=== PATIENT | male | born 1995 | race Caucasian/White ===

== ENCOUNTER 2016-07-15 11:20 | Emergency (ER) | payer OTHER ==
[~2016-07-15] VITALS: Ht 185.4 cm; Wt 68.0 kg
[~2016-07-15 11:20] MED LIST: AMOXICILLIN500 MG PO; BACTRIM DS 8001 TAB PO
[2016-07-15 11:39] VITALS: BP 110/75
--- NOTE | 2016-07-15 13:18 | ED EYE COMPLAINT ---
History of Present Illness General Chief Complaint: Eye Problems Stated Complaint: "MY EYE IS ALL MESSED UP" LEFT EYE Source: patient Exam Limitations: no limitations Vital Signs & Intake/Output Vital Signs & Intake/Output Vital Signs Date Time Temp Pulse Resp B/P Pulse O2 O2 Flow FiO2 Ox Delivery Rate 07/15 1139 98.1 75 20 110/75 98 Room Air Allergies Coded Allergies: NO KNOWN ALLERGIES (02/01/15) Reconcile Medications Amoxicillin 500 MG CAP 1 TAB PO TID CELLULITIS Clindamycin HCl (Cleocin HCl) 150 MG CAPSULE 3 CAP PO TID PERIORBITAL CELLULITIS Ibuprofen 800 MG TABLET 1 TAB PO TID PRN PAIN Sulfamethoxazole/Trimethopri (Bactrim Ds 800 MG-160 MG) 1 TAB TAB 1 TAB PO BID ABSCESS/CELLULITIS Triage Note: WOKE UP YESTERDAY WITH SWELLING TO LEFT EYE. 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 PT STATES HIS SKIN FEELS GREAT THOUGH Triage Nurses Notes Reviewed? yes Onset: Gradual Duration: day(s): (3) Timing: recent history Injury Environment: home Severity: moderate Left Eye Associated Symptoms: orbital swelling HPI: This is a 21-year-old male presents here with chief complaint of left eye redness and swelling since Monday. He states he noticed a pimple on the left side of his nose on Monday and tried to pop it. He got a small and a pus out of it. Yesterday he started to notice redness and swelling around the lower lid and upper lid. Denies any pain in the eye. Denies any blurred vision. He states that he tried looking up natural [id number] remedies and did a face wash with appetite or vinegar which did not help the area of inflammation. No history of similar symptoms in the past before. History of cystic acne. Past History Travel History Traveled to [place] past 21 day No Medical History Any Pertinent Medical History? see below for history Neurological: NONE EENT: NONE Cardiovascular: NONE Respiratory: NONE Gastrointestinal: NONE Hepatic: NONE Renal: NONE Musculoskeletal: NONE Psychiatric: NONE Endocrine: NONE Blood Disorders: NONE Cancer(s): NONE OPERATOR AUTOMATED PROCESS/Reproductive: NONE Surgical History Surgical History: N Psychosocial History What is your primary language Hebrew Tobacco Use: Never used ETOH Use: occasional use Illicit Drug Use: marijuana Family History Hx Contributory? No Review of Systems Review of Systems Constitutional: Denies: chills, fever. Physical Exam General Appearance: well developed/nourished, alert, awake, anxious General Inspection: periorbital erythema, periorbital swelling Eyelid: edema Conjunctiva/Sclera: PERIORBITAL EDEMA Cornea: normal inspection EOM: intact Eye Left 1) SOFT TISSUE SWELLING 2) SOFT TISSUE SWELLING General Inspection: normal inspection Eyelid: normal inspection Conjunctiva/Sclera: normal inspection Physical Exam Head: atraumatic, normal appearance Nose: normal inspection Mouth/Throat: normal mouth inspection, pharynx normal Neck: normal inspection, supple, full range of motion Progress Differential Diagnosis: PERIORBITAL CELLULITIS, PIMPLE, SOFT TISSUE EDEMA, ORBITAL CELLULITIS Plan of Care: PO ABX, WARM SOAKS. NO PAIN WITH RANGE OF MOTION OF EYE, NO VISUAL DISTURBANCE. EXAM NOT CONSISTENT WITH ORBITAL CELLULITIS. Departure Departure Time of Disposition: 1338 Disposition: HOME OR SELF CARE Condition: Stable Clinical Impression Primary Impression: Periorbital cellulitis of left eye Referrals: OSEAS ARMENTA,ZENOBIA (PCP/Family) SARAH ARMENTA,RIC Escobar Additional Instructions: Take her prescriptions as directed . Warm soaks to the area as we discussed. Please return to the emergency department for wound reevaluation if the symptoms are not better in the next 24-48 hours. Otherwise follow-up with the specialist listed. Departure Forms: Customer Survey General Discharge Information Prescriptions: Current Visit Scripts Clindamycin HCl (Cleocin HCl) 3 CAP PO TID #90 CAP Ibuprofen 1 TAB PO TID PRN PAIN #20 TAB
[2016-07-15] MEDS ORDERED: CLEOCIN HCL150 M1 PO (13:39)
[2016-07-15] MEDS ORDERED: IBUPROFEN800 M1 PO (13:39)
== END 2016-07-15 14:14 ==
LOC: ERH 11:20
DX: L03.211 Cellulitis of face (principal)